=== PATIENT | male | born 1940 | race Caucasian/White ===

== ENCOUNTER 2024-04-17 10:12 | Emergency (ER) | payer OTHER, MEDICAID ==
[~2024-04-17] VITALS: Ht 177.8 cm; Wt 74.8 kg
[2024-04-17 10:15] VITALS: BP 156/80; PULSE 70; RESP 20; TEMP 98.1; O2SAT 95
[2024-04-17] MEDS ORDERED: ONDA8TAB87 PO (12:27)
[2024-04-17 14:10] VITALS: BP 148/74; PULSE 68; RESP 16; TEMP 98.1; O2SAT 95
== END 2024-04-17 14:09 | disposition home or self-care (01) ==
LOC: MED 10:12
DX: R11.2 Nausea with vomiting, unspecified (principal); I10 Essential (primary) hypertension; K21.9 Gastro-esophageal reflux disease without esophagitis; F03.90 Unspecified dementia, unspecified severity, without behavioral disturbance, psychotic disturbance, mood disturbance, and anxiety; E78.5 Hyperlipidemia, unspecified
CPT/HCPCS: 99283